=== PATIENT | female | born 1985 | race Caucasian/White ===

== ENCOUNTER 2020-10-10 12:46 | Outpatient (CLI) | payer OTHER | END 2020-10-10 12:47 | disposition home or self-care (01) | LOC: BICULT 12:46 | PROVIDERS: ATTEND Family Medicine | DX: E04.2 Nontoxic multinodular goiter (principal) | CPT/HCPCS: 70481; 76536 ==

== ENCOUNTER 2020-11-13 22:54 | Emergency (ER) | payer OTHER ==
[2020-11-13] MEDS ORDERED: Acetaminophen 500 MG TAB ONE (23:27)
[2020-11-13 23:39] LABS: #Basophils 0.1 thou/uL (0.0-0.2); #Eosinphils 0.2 thou/uL (0.0-0.7); #Lymphocytes 3.9 thou/uL (1.20-3.40); #Monocytes 0.6 thou/uL (0.11-0.59); %Basophils 0.8 % (0.0-1.0); %Eosinophils 2.3 % (0.0-10.0); %Lymphocytes 44.6 % (21.0-51.0); %Monocytes 6.6 % (0.0-10.0); %Neutrophils 45.8 % (42.0-75.0); Hemoglobin 11.6 g/dL (12.0-16.0); Mean Corpuscular HGB CONC 35.6 g/dL (32.0-36.0); Mean Corpuscular Hemoglobin 30.2 pg (27.0-31.0); Mean Platelet Volume 8.2 fL (7.4-10.4); Platelet Count 202 thou/uL (130-400); RBC Distribution Width 12.2 % (11.5-14.5); Red Blood Cell (RBC) Count 3.83 mill/uL (4.20-5.40); White Blood Cell (WBC) Count 8.6 thou/uL (4.8-10.8)
[2020-11-13 23:52] LABS: ALT (SGPT) 22 U/L (8-55); AST (SGOT) 25 U/L (5-34); Albumin 3.5 g/dL (3.5-5.0); Alkaline Phosphatase 68 U/L (40-110); Anion Gap 15 mmol/L (10-20); BUN (Urea Nitrogen) 10 mg/dL (7.0-18.7); Bilirubin, Total 0.3 mg/dL (0.2-1.2); Calc. Creatinine Clearance 0 mL/min (70-130); Calcium 8.5 mg/dL (7.8-10.44); Carbon Dioxide 19 mmol/L (22-29); Chloride 109 mmol/L (98-107); Globulin 3.5 g/dL (2.4-3.5); Glucose 95 mg/dL (70-105); Potassium 3.8 mmol/L (3.5-5.1); Sodium 139 mmol/L (136-145)
[2020-11-14] MEDS ORDERED: Ondansetron ODT 4 MG TAB ONE (02:36)
[2020-11-14] MEDS ORDERED: Metoclopramide HCl 10 MG/2 ML VIAL ONE (02:56)
[2020-11-14] MEDS ORDERED: Metoclopramide 10 MG/10 ML UDCUP ONE (02:56)
[2020-11-14 03:07] LABS: Bacteria/HPF None Seen HPF (None Seen); Bilirubin Negative (Negative); Blood, Urine Negative (Negative); Clarity Clear (Clear); Glucose, Urine (Dipstick) Normal (Negative); Ketone, Urine Negative (Negative); Leukocyte 250 Leu/uL (Negative); Nitrite Negative (Negative); Pregnancy Test - Urine (BHCG) Negative (Negative); Pregu Control Background? CLEAR/WHITE (CLR/WHITE); Pregu Control Bar Appear? YES (CONTROL BAR); Protein, Urine (Dipstick) Negative (Neg-Trace); RBC/HPF 0-3 HPF (0-3); Urobilinogen Normal mg/dL (Less than 2); WBC/HPF 21-50 HPF (0-3); pH, Urine 6.5 (5.0-9.0)
[2020-11-14] MEDS ORDERED: levETIRAcetam 500 MG TAB PO SCH (05:30)
== END 2020-11-14 05:40 ==
LOC: ERS 22:54
DX: N39.0 Urinary tract infection, site not specified (principal); G40.409 Other generalized epilepsy and epileptic syndromes, not intractable, without status epilepticus; R51.9 Headache, unspecified; E10.9 Type 1 diabetes mellitus without complications; I10 Essential (primary) hypertension; E78.00 Pure hypercholesterolemia, unspecified; E78.5 Hyperlipidemia, unspecified; M19.90 Unspecified osteoarthritis, unspecified site; M79.7 Fibromyalgia; Z79.899 Other long term (current) drug therapy
CPT/HCPCS: 36415; 70450; 80053; 81003; 81015; 81025; 85025; 93005; 96365; J2765; Q0162

== ENCOUNTER 2020-11-28 12:48 | Day surgery (SDC) | payer OTHER ==
[2020-11-27 09:17] VITALS: BMI 36.8
[2020-11-28] MEDS ORDERED: Sodium Bicarbonate 2.5 MEQ/5 ML VIAL ONE (12:49)
[2020-11-28] MEDS ORDERED: Lidocaine 1% PF 5 ML VIAL ONE (12:49)
[2020-11-28 14:18] VITALS: BP 133/88; TEMP 98.1
== END 2020-11-28 14:05 ==
LOC: ULT 12:48
PROVIDERS: ATTEND Family Medicine
PROC: 0GJK3ZZ Inspection of Thyroid Gland, Percutaneous Approach (ICD-10-PCS; principal; 2020-11-28)
PROC: BG44ZZZ Ultrasonography of Thyroid Gland (ICD-10-PCS; principal; 2020-11-28)
DX: E04.2 Nontoxic multinodular goiter (principal); G40.909 Epilepsy, unspecified, not intractable, without status epilepticus; E11.9 Type 2 diabetes mellitus without complications; I10 Essential (primary) hypertension; F31.9 Bipolar disorder, unspecified; F41.9 Anxiety disorder, unspecified; F43.10 Post-traumatic stress disorder, unspecified; N39.0 Urinary tract infection, site not specified; M47.9 Spondylosis, unspecified; H52.209 Unspecified astigmatism, unspecified eye; E66.9 Obesity, unspecified; J45.909 Unspecified asthma, uncomplicated; M79.7 Fibromyalgia; Z68.36 Body mass index [BMI] 36.0-36.9, adult; Z79.4 Long term (current) use of insulin; Z79.899 Other long term (current) drug therapy; Z88.5 Allergy status to narcotic agent; Z88.8 Allergy status to other drugs, medicaments and biological substances
CPT/HCPCS: 60100; 76942; 88173

== ENCOUNTER 2021-02-27 09:56 | Day surgery (SDC) | payer OTHER ==
[2021-02-26 12:08] VITALS: BMI 36.8
[2021-02-27] MEDS ORDERED: Lidocaine 1% w/Epinephrine 1:100K 20 ML VIAL ONE (11:29)
[2021-02-27] MEDS ORDERED: Fentanyl 250 MCG/5 ML VIAL ONE (11:34)
[2021-02-27] MEDS ORDERED: Morphine 4 MG/ML VIAL ONE (11:34)
[2021-02-27] MEDS ORDERED: Midazolam HCl 2 mg/2 ml Vial ONE (11:42)
[2021-02-27] MEDS ORDERED: Acetaminophen 500 MG TAB ONE (11:42)
[2021-02-27] MEDS ORDERED: Succinylcholine 200 MG/10 ml SYRINGE FS ONE (12:36)
[2021-02-27] MEDS ORDERED: Lidocaine 1% PF 5 ML VIAL ONE (12:36)
[2021-02-27] MEDS ORDERED: Ketorolac Tromethamine 30 MG/ML VIAL ONE (12:36)
[2021-02-27] MEDS ORDERED: Rocuronium Bromide 10 MG/ML (10ML VIAL) ONE (12:36)
[2021-02-27] MEDS ORDERED: Ondansetron PF 4 MG/2 ML Vial ONE (12:36)
[2021-02-27] MEDS ORDERED: Dexamethasone 20 MG/5 ML VIAL ONE (12:36)
[2021-02-27] MEDS ORDERED: PROPOFOL 200 MG/20 ML VIAL ONE (12:36)
[2021-02-27] MEDS ORDERED: PHENYLEPHRINE-NS 100 MCG/ML 10 ML SYRINGE ONE (12:36)
[2021-02-27] MEDS ORDERED: Fentanyl 100 MCG/2 ML VIAL ONE ×2 (14:27→14:53)
[2021-02-27] MEDS ORDERED: Labetalol HCl 100 MG/20 ML VIAL ONE (15:01)
== END 2021-02-27 16:44 | disposition home or self-care (01) ==
LOC: SDC 09:56
PROVIDERS: ATTEND Specialist
PROC: 0GBJ0ZZ Excision of Thyroid Gland Isthmus, Open Approach (ICD-10-PCS; principal; 2021-02-27)
PROC: 0GTK0ZZ Resection of Thyroid Gland, Open Approach (ICD-10-PCS; principal; 2021-02-27)
DX: C73 Malignant neoplasm of thyroid gland (principal); E04.1 Nontoxic single thyroid nodule; Z79.4 Long term (current) use of insulin; Z79.899 Other long term (current) drug therapy; Z88.5 Allergy status to narcotic agent; Z88.8 Allergy status to other drugs, medicaments and biological substances
CPT/HCPCS: 36416; 85014; 88307; 88325; J0690; J1100; J1885; J2250; J2270; J2405; J2704; J3010

== ENCOUNTER 2021-03-06 09:10 | Inpatient (IN) | payer OTHER ==
[2021-03-06] MEDS ORDERED: Lidocaine 1% w/Epinephrine 1:100K 20 ML VIAL ONE (09:45)
[2021-03-06] MEDS ORDERED: Fentanyl 100 MCG/2 ML VIAL ONE ×4 (10:18→15:55)
[2021-03-06] MEDS ORDERED: Famotidine/PF 20 mg/2ml Vial ONE (10:18)
[2021-03-06] MEDS ORDERED: SUGAMMADEX SODIUM 200 MG/2 ML VIAL ONE (10:20)
[2021-03-06 10:22] LABS: BHCG - Serum Negative (NEGATIVE); Pregs Control Background? CLEAR/WHITE (CLR/WHITE); Pregs Control Bar Appear? YES (CONTROL BAR)
[2021-03-06] MEDS ORDERED: Midazolam HCl 2 mg/2 ml Vial ONE (10:43)
[2021-03-06] MEDS ORDERED: Acetaminophen 500 MG TAB ONE (10:44)
[2021-03-06] MEDS ORDERED: PHENYLEPHRINE-NS 100 MCG/ML 10 ML SYRINGE ONE (11:00)
[2021-03-06] MEDS ORDERED: Ondansetron PF 4 MG/2 ML Vial ONE (11:00)
[2021-03-06] MEDS ORDERED: Succinylcholine 200 MG/10 ml SYRINGE FS ONE (11:00)
[2021-03-06] MEDS ORDERED: PROPOFOL 200 MG/20 ML VIAL ONE (11:00)
[2021-03-06] MEDS ORDERED: Lidocaine 1% PF 5 ML VIAL ONE (11:00)
[2021-03-06] MEDS ORDERED: Rocuronium Bromide 10 MG/ML (10ML VIAL) ONE (11:00)
[2021-03-06] MEDS ORDERED: hydrALAZINE 20 MG/ML VIAL ONE (14:15)
[2021-03-06] MEDS ORDERED: Acetaminophen 325 MG TAB PO PRN (14:15)
[2021-03-06] MEDS ORDERED: Morphine 2 MG/ML VIAL SLOW IVP PRN (14:17)
[2021-03-06] MEDS ORDERED: Ondansetron PF 4 MG/2 ML Vial IVP PRN (14:22)
[2021-03-06] MEDS ORDERED: Promethazine HCl 25 MG/ML VIAL IM PRN (14:23)
[2021-03-06] MEDS ORDERED: hydrALAZINE 20 MG/ML VIAL SLOW IVP PRN (14:24)
[2021-03-06] MEDS ORDERED: HYDROcodone/Acetaminophen 10/325 mg Tablet PO PRN (14:30)
[2021-03-06] MEDS ORDERED: Promethazine HCl 25 MG/ML VIAL ONE (15:55)
[2021-03-06 19:42] VITALS: BMI 33.4
[2021-03-06] MEDS: Morphine 4 MG/ML VIAL SLOW IVP PRN ×2 (20:01→23:26)
[2021-03-06] MEDS: Calcium Carbonate 600 MG TAB PO SCH ×2 (21:00→21:15)
[2021-03-06] MEDS ORDERED: Dextrose 50% Abboject 50 ML SYRINGE SLOW IVP PRN (21:07)
[2021-03-06] MEDS ORDERED: Dextrose 5% in Water 1,000 ML IV PRN (21:07)
[2021-03-06] MEDS ORDERED: Insulin Regular 300 UNITS/3 ML VIAL SC PRN (21:07)
[2021-03-06] MEDS: levETIRAcetam 500 MG TAB PO SCH (21:15)
[2021-03-07] MEDS: Levothyroxine 150 MCG TAB PO SCH (04:19)
[2021-03-07 06:05] LABS: #Basophils 0.1 thou/uL (0.0-0.2); #Eosinphils 0.2 thou/uL (0.0-0.7); #Lymphocytes 2.8 thou/uL (1.20-3.40); #Monocytes 0.7 thou/uL (0.11-0.59); #Neutrophils 7.8 thou/uL (1.40-6.50); %Basophils 0.4 % (0.0-1.0); %Eosinophils 1.5 % (0.0-10.0); %Lymphocytes 24.5 % (21.0-51.0); %Monocytes 6.4 % (0.0-10.0); %Neutrophils 67.1 % (42.0-75.0); Hemoglobin 11.4 g/dL (12.0-16.0); Mean Corpuscular HGB CONC 34.5 g/dL (32.0-36.0); Mean Corpuscular Volume 86.7 fL (78.0-98.0); Mean Platelet Volume 8.1 fL (7.4-10.4); Platelet Count 204 thou/uL (130-400); RBC Distribution Width 12.5 % (11.5-14.5); Red Blood Cell (RBC) Count 3.82 mill/uL (4.20-5.40); White Blood Cell (WBC) Count 11.5 thou/uL (4.8-10.8)
[2021-03-07 06:26] LABS: Anion Gap 11 mmol/L (10-20); BUN (Urea Nitrogen) 8 mg/dL (7.0-18.7); Calc. Creatinine Clearance 176 mL/min (70-130); Calcium 8.1 mg/dL (7.8-10.44); Carbon Dioxide 26 mmol/L (22-29); Chloride 102 mmol/L (98-107); Glucose 140 mg/dL (70-105); Potassium 3.5 mmol/L (3.5-5.1); Sodium 135 mmol/L (136-145)
[2021-03-07] MEDS: Morphine 4 MG/ML VIAL SLOW IVP PRN (08:53)
[2021-03-07] MEDS: FLUoxetine HCl 20 MG CAP PO SCH (09:35)
[2021-03-07] MEDS: Atorvastatin Calcium 20 MG TAB PO SCH (09:35)
[2021-03-07] MEDS: levETIRAcetam 500 MG TAB PO SCH ×2 (09:36→20:27)
[2021-03-07] MEDS: Lisinopril 20 MG TAB PO SCH (09:36)
[2021-03-07] MEDS: Calcium Carbonate 600 MG TAB PO SCH ×4 (10:04→21:00)
[2021-03-07] MEDS: NPH, Human Insulin Isophane 300 UNIT/3 ML VIAL SC SCH ×2 (11:29→20:28)
[2021-03-07] MEDS: Insulin Regular 300 UNITS/3 ML VIAL SC PRN ×2 (11:32→16:43)
[2021-03-07] MEDS: HYDROcodone/Acetaminophen 10/325 mg Tablet PO PRN ×2 (12:02→18:04)
[2021-03-08] MEDS: HYDROcodone/Acetaminophen 10/325 mg Tablet PO PRN ×5 (00:16→23:33)
[2021-03-08] MEDS: Levothyroxine 150 MCG TAB PO SCH (06:08)
[2021-03-08] MEDS: Calcium Carbonate 500 MG ChewTAB PO SCH ×3 (08:47→20:43)
[2021-03-08] MEDS: Atorvastatin Calcium 20 MG TAB PO SCH (08:48)
[2021-03-08] MEDS: Lisinopril 20 MG TAB PO SCH (08:48)
[2021-03-08] MEDS: FLUoxetine HCl 20 MG CAP PO SCH (08:49)
[2021-03-08] MEDS: levETIRAcetam 500 MG TAB PO SCH ×2 (08:49→20:43)
[2021-03-08] MEDS: NPH, Human Insulin Isophane 300 UNIT/3 ML VIAL SC SCH ×2 (08:50→20:50)
[2021-03-08] MEDS: Insulin Regular 300 UNITS/3 ML VIAL SC PRN (13:04)
[2021-03-08] MEDS: Calcium Carbonate 600 MG TAB PO SCH ×4 (13:45→20:44)
[2021-03-08] MEDS: Morphine 4 MG/ML VIAL SLOW IVP PRN (15:12)
[2021-03-08] MEDS: Calcitriol 0.25 MCG CAP PO SCH (17:24)
[2021-03-09] MEDS ORDERED: Benzonatate 100 MG CAP PO PRN (00:48)
[2021-03-09] MEDS: Ibuprofen 200 MG TAB PO PRN ×5 (01:06→22:15)
[2021-03-09 05:32] LABS: #Eosinphils 0.2 thou/uL (0.0-0.7); #Lymphocytes 3.6 thou/uL (1.20-3.40); #Monocytes 0.6 thou/uL (0.11-0.59); #Neutrophils 3.9 thou/uL (1.40-6.50); %Basophils 0.1 % (0.0-1.0); %Eosinophils 2.5 % (0.0-10.0); %Monocytes 7.7 % (0.0-10.0); %Neutrophils 46.8 % (42.0-75.0); Hemoglobin 10.7 g/dL (12.0-16.0); Mean Corpuscular HGB CONC 34.3 g/dL (32.0-36.0); Mean Corpuscular Hemoglobin 30.1 pg (27.0-31.0); Mean Corpuscular Volume 87.7 fL (78.0-98.0); Platelet Count 205 thou/uL (130-400); RBC Distribution Width 12.2 % (11.5-14.5); Red Blood Cell (RBC) Count 3.56 mill/uL (4.20-5.40); White Blood Cell (WBC) Count 8.3 thou/uL (4.8-10.8)
[2021-03-09] MEDS: Levothyroxine 150 MCG TAB PO SCH (05:33)
[2021-03-09 05:53] LABS: Anion Gap 11 mmol/L (10-20); BUN (Urea Nitrogen) 8 mg/dL (7.0-18.7); Calc. Creatinine Clearance 181 mL/min (70-130); Calcium 7.7 mg/dL (7.8-10.44); Carbon Dioxide 28 mmol/L (22-29); Chloride 101 mmol/L (98-107); Glucose 78 mg/dL (70-105); Potassium 3.3 mmol/L (3.5-5.1); Sodium 137 mmol/L (136-145)
[2021-03-09] MEDS: HYDROcodone/Acetaminophen 10/325 mg Tablet PO PRN ×3 (08:48→19:52)
[2021-03-09] MEDS: Calcitriol 0.25 MCG CAP PO SCH (08:51)
[2021-03-09] MEDS: Calcium Carbonate 500 MG ChewTAB PO SCH ×3 (08:52→21:10)
[2021-03-09] MEDS: levETIRAcetam 500 MG TAB PO SCH ×2 (08:52→21:10)
[2021-03-09] MEDS: Potassium Chloride 20 MEQ TAB PO SCH ×2 (08:52→17:59)
[2021-03-09] MEDS: Lisinopril 20 MG TAB PO SCH (08:52)
[2021-03-09] MEDS: FLUoxetine HCl 20 MG CAP PO SCH (08:53)
[2021-03-09] MEDS: Atorvastatin Calcium 20 MG TAB PO SCH (08:53)
[2021-03-09] MEDS: NPH, Human Insulin Isophane 300 UNIT/3 ML VIAL SC SCH ×2 (08:57→21:09)
[2021-03-09] MEDS: Calcium Carbonate 600 MG TAB PO SCH (12:26)
[2021-03-09] MEDS ORDERED: clonazePAM 1 MG TAB PO PRN (19:17)
[2021-03-10] MEDS: HYDROcodone/Acetaminophen 10/325 mg Tablet PO PRN (02:10)
[2021-03-10] MEDS: Levothyroxine 150 MCG TAB PO SCH (06:24)
[2021-03-10] MEDS: Ibuprofen 200 MG TAB PO PRN (06:24)
[2021-03-10 08:28] VITALS: BP 98/63; TEMP 97.6
[2021-03-10] MEDS: FLUoxetine HCl 20 MG CAP PO SCH (08:31)
[2021-03-10] MEDS: Calcium Carbonate 500 MG ChewTAB PO SCH (08:31)
[2021-03-10] MEDS: Atorvastatin Calcium 20 MG TAB PO SCH (08:32)
[2021-03-10] MEDS: levETIRAcetam 500 MG TAB PO SCH (08:32)
[2021-03-10] MEDS: Calcitriol 0.25 MCG CAP PO SCH (08:32)
[2021-03-10] MEDS: Potassium Chloride 20 MEQ TAB PO SCH (08:32)
[2021-03-10] MEDS: Lisinopril 20 MG TAB PO SCH (08:32)
[2021-03-10] MEDS: NPH, Human Insulin Isophane 300 UNIT/3 ML VIAL SC SCH (08:35)
== END 2021-03-10 13:18 | DRG 627 ==
LOC: SDC 09:10 → ONC 13:56
PROVIDERS: ADMIT Specialist; ATTEND Internal Medicine
PROC: 0GTK0ZZ Resection of Thyroid Gland, Open Approach (ICD-10-PCS; principal; 2021-03-06)
PROC: 01B Peripheral Nervous System, Excision (ICD-10-PCS; 2021-03-06)
DX: E04.2 Nontoxic multinodular goiter (principal); I10 Essential (primary) hypertension; E06.3 Autoimmune thyroiditis; F31.9 Bipolar disorder, unspecified; G40.909 Epilepsy, unspecified, not intractable, without status epilepticus; E10.9 Type 1 diabetes mellitus without complications; F43.10 Post-traumatic stress disorder, unspecified; F41.9 Anxiety disorder, unspecified; E78.5 Hyperlipidemia, unspecified; Z88.5 Allergy status to narcotic agent; Z88.8 Allergy status to other drugs, medicaments and biological substances; Z79.899 Other long term (current) drug therapy; Z79.4 Long term (current) use of insulin; Z90.49 Acquired absence of other specified parts of digestive tract; Z83.3 Family history of diabetes mellitus; Z82.49 Family history of ischemic heart disease and other diseases of the circulatory system; Z83.49 Family history of other endocrine, nutritional and metabolic diseases
CPT/HCPCS: 36415; 36416; 80048; 82310; 84703; 85014; 85025; 88307; J0360; J1815; J2250; J2270; J2405; J2550; J2704; J3010; S0028

== ENCOUNTER 2021-05-02 11:16 | Outpatient (CLI) | payer OTHER ==
[2021-05-02 12:00] LABS: BHCG - Serum Negative (NEGATIVE); Pregs Control Background? CLEAR/WHITE (CLR/WHITE); Pregs Control Bar Appear? YES (CONTROL BAR)
== END 2021-05-02 11:17 | disposition home or self-care (01) ==
LOC: NM 11:16
PROVIDERS: ATTEND Family Medicine
DX: E04.2 Nontoxic multinodular goiter (principal)
CPT/HCPCS: 36415; 79005; 84703; A9517